=== PATIENT | male | born 1995 | race Caucasian/White ===

== ENCOUNTER 2016-12-15 19:22 | Inpatient (IN) | payer MEDICAID ==
--- NOTE | 2016-12-15 19:46 | EDPHY ---
H & P Smoking Status: Current every day smoker HPI/ROS: Chief complaint. Bizarre behavior HPI. 21-year-old male here by EMS from mental health for unusual behavior. The patient has rambling, nonsensical speech. He tells me he has no pain or injuries. He tells me he has not been sick. When asked him if he has been taking too many medications or is supposed to be on medication and not taking any medication he speaks rambling and nonsensically. He does tell me he has no suicide ideation at this point. ROS--unable to assess secondary to rambling nonsensical speech (Dharmesh Nickerson) Past Medical/Surgical History: Anxiety and depression and apparent previous suicide ideation. This is obtained from old chart (Dharmesh Nickerson) [id number]: This patient has been accepted at [address] [place] [address]. EMTALA Filled out. Appropriate transfer will be set up. (Irwin Griffith) Social History: Single, daily smoker, unknown alcohol (Dharmesh Nickerson) Physical Exam: General Appearance: Alert well-developed male mild distress vital signs are stable. Nonsensical speech Eyes: Pupils equal and round no pallor or injection. ENT, Mouth: Mucous membranes are moist. Respiratory: There are no retractions, lungs are clear to auscultation. Cardiovascular: Regular rate and rhythm. Gastrointestinal: Abdomen is soft and nontender, no masses, bowel sounds normal. Neurological: Awake and alert, sensory and motor exams grossly normal. Skin: Warm and dry, no rashes. Musculoskeletal: Neck is supple nontender. Extremities symmetrical, full range of motion. Psychiatric: Patient is oriented X 1 (name only)., there is no agitation. ( Dharmesh Nickerson) Constitutional: Initial Vital Signs Temperature (C) 37.2 C 12/15/16 19:31 Heart Rate 70 12/15/16 19:31 Respiratory Rate 14 12/15/16 19:31 Blood Pressure 132/93 H 12/15/16 19:31 O2 Sat (%) 98 12/15/16 19:31 O2 Delivery Mode Room Air Allergies/Adverse Reactions: No Known Allergies Allergy (Unverified 12/15/16 19:31) Home Medications: Medication Instructions Recorded NK [No Known Home Meds] 12/15/16 Medical Decision Making ED Course/Re-evaluation: On re-evaluation Patient remained stable. Patient's labs are reviewed by me and found to be normal. Patient is cleared medically for mental health evaluation. (Dharmesh Nickerson) Differential Diagnosis: This appears to be psychiatric issues such as schizophrenia. The patient is clearly disabled and unable to care for self. (Dharmesh Nickerson) Care Turn Over: Care to Dr. Griffith at 10:20 p.m. (Dharmesh Nickerson) - Data Points Laboratory Results: Laboratory Results 12/15/16 19:40 12/15/16 19:40 12/15/16 12/15/16 12/15/16 21:52 19:40 19:40 WBC 6.95 10^3/uL 10^3/uL (3.80-9.50) RBC 5.18 10^6/uL 10^6/uL (4.40-6.38) Hgb 16.0 g/dL g/dL (13.7-17.5) Hct 47.7 % % (40.0-51.0) MCV 92.1 fL fL (81.5-99.8) MCH 30.9 pg pg (27.9-34.1) MCHC 33.5 g/dL g/dL (32.4-36.7) RDW 12.5 % % (11.5-15.2) Plt Count 233 10^3/uL 10^3/uL (150-400) MPV 10.4 fL fL (8.7-11.7) Neut % (Auto) 56.8 % % (39.3-74.2) Lymph % (Auto) 27.8 % % (15.0-45.0) Floyd % (Auto) 11.9 % % (4.5-13.0) Eos % (Auto) 1.9 % % (0.6-7.6) Baso % (Auto) 1.3 % % (0.3-1.7) Nucleat RBC Rel Count 0.0 % % (0.0-0.2) Absolute Neuts (auto) 3.95 10^3/uL 10^3/uL (1.70-6.50) Absolute Lymphs (auto) 1.93 10^3/uL 10^3/uL (1.00-3.00) Absolute Monos (auto) 0.83 10^3/uL H 10^3/uL (0.30-0.80) Absolute Eos (auto) 0.13 10^3/uL 10^3/uL (0.03-0.40) Absolute Basos (auto) 0.09 10^3/uL 10^3/uL (0.02-0.10) Absolute Nucleated RBC 0.00 10^3/uL 10^3/uL (0-0.01) Immature Gran % 0.3 % % (0.0-1.1) Immature Gran # 0.02 10^3/uL 10^3/uL (0.00-0.10) Sodium 142 mEq/L mEq/L (134-144) Potassium 3.5 mEq/L mEq/L (3.5-5.2) Chloride 102 mEq/L mEq/L (97-110) Carbon Dioxide 25 mEq/l mEq/l (22-31) Anion Gap 15 mEq/L mEq/L (8-16) BUN 16 mg/dL mg/dL (7-23) Creatinine 1.0 mg/dL mg/dL (0.7-1.3) Estimated GFR > 60 Glucose 113 mg/dL H mg/dL (70-100) Calcium 10.0 mg/dL mg/dL (8.5-10.4) Urine Opiates Screen NEGATIVE (NEGATIVE) Acetaminophen < 10 mcg/mL L mcg/mL (10.0-30.0) Urine Barbiturates NEGATIVE (NEGATIVE) Ur Phencyclidine Scrn NEGATIVE (NEGATIVE) Ur Amphetamine Screen NEGATIVE (NEGATIVE) U Benzodiazepines Scrn NEGATIVE (NEGATIVE) Urine Cocaine Screen NEGATIVE (NEGATIVE) U Marijuana (THC) Screen NEGATIVE (NEGATIVE) Ethyl Alcohol < 10 mg/dL mg/dL (0-10) Departure - Departure Disposition: [facility] IP Clinical Impression: Gravely disabled Psychosis Qualifiers: Psychosis type: other Qualified Code(s): F28 - Other psychotic disorder not due to a substance or known physiological condition Condition: Fair Referrals: Patient,NotPresent [Unknown] - As per Instructions
[2016-12-15 19:54] LABS: % IMMATURE GRANULYOCYTES 0.3 % (0.0-1.1); ABSOLUTE IMMATURE GRANULOCYTES 0.02 10^3/uL (0.00-0.10); ADD DIFF? NO; ADD MORPH? NO; ADD SCAN? NO; ATYPICAL LYMPHOCYTE FLAG 20 (0-99); FRAGMENT RBC FLAG 0 (0-99); HEMATOCRIT 47.7 % (40.0-51.0); LEFT SHIFT FLG 0 (0-99); LIPEMIA HEMOLYSIS FLAG 80 (0-99); MEAN CELL HEMOGLOBIN 30.9 pg (27.9-34.1); MEAN CELL HEMOGLOBIN CONCENTR. 33.5 g/dL (32.4-36.7); MEAN CELL VOLUME 92.1 fL (81.5-99.8); MEAN PLATELET VOLUME 10.4 fL (8.7-11.7); PLATELET CLUMPS FLAG 0 (0-99); PLATELET COUNT 233 10^3/uL (150-400); RED BLOOD CELL COUNT 5.18 10^6/uL (4.40-6.38); RED CELL DISTRIBUTION WIDTH 12.5 % (11.5-15.2)
[2016-12-15 20:05] LABS: ANION GAP 15 mEq/L (8-16); CARBON DIOXIDE 25 mEq/l (22-31); CHLORIDE 102 mEq/L (97-110); ETHANOL SERUM < 10 mg/dL (0-10); GLOMERULAR FILTRATION RATE > 60; GLUCOSE 113 mg/dL (70-100); POTASSIUM 3.5 mEq/L (3.5-5.2); SODIUM 142 mEq/L (134-144)
[2016-12-16] MEDS ORDERED: LORazepam 0.5 MG TAB PO PRN (12:52)
[2016-12-16] MEDS ORDERED: ACETAMINOPHEN 325 MG TAB PO PRN (12:52)
[2016-12-16] MEDS ORDERED: OLANZapine DISINTEGR 10 MG TAB PO PRN (12:52)
[2016-12-16] MEDS ORDERED: MAGNESIUM HYDROXIDE 30 ML UDCUP PO PRN (12:52)
[2016-12-16] MEDS ORDERED: ZOLPIDEM TARTRATE 5 MG TAB PO PRN (12:55)
[2016-12-16] MEDS: OLANZapine DISINTEGR 5 MG TAB PO SCH ×2 (13:58→20:21)
[2016-12-17] MEDS: OLANZapine DISINTEGR 5 MG TAB PO SCH (07:35)
--- NOTE | 2016-12-17 08:06 | GCON ---
[f rep st] CONSULTATION INTERNAL MEDICINE CONSULT DATE OF CONSULTATION: 12/17/2016 REFERRING PHYSICIAN: Dr. York REASON FOR REFERRAL: Medical consult for psychiatric admission. HISTORY OF PRESENT ILLNESS: [place] is a 21-year-old, brought to the emergency department by EMS for unusual behavior. He was found rambling and nonsensical. He is reluctant to give information on m y interview. He just says, "I'm an empty vessel that wants to lose consciousness." He denies any r ecent illnesses, fevers, chills, weight changes. He denies any headache, chest pain, shortness of b reath. No abdominal complaints, joint complaints, skin rashes, really any medical issues. REVIEW OF SYSTEMS: A 10-point review of systems was attempted including constitutional, eyes, HEENT , cardiovascular, pulmonary, abdominal, , skin, musculoskeletal, neurologic, psychiatric. He answ ers to some of the questions. Other times, he does not want to give information. PAST MEDICAL AND SURGICAL HISTORY: Includes anxiety and depression and apparent suicidal ideation f rom after reviewing the ER chart. The patient does not give any of this history. FAMILY HISTORY: He says he does not know his parents now. SOCIAL HISTORY: He says he is from [place]. He smokes tobacco whenever he can, and when I asked abo ut marijuana he says "certainly," but he denies alcohol use or any other recreational drug use. LABORATORY DATA: CBC is completely within normal limits. Chemistry shows normal electrolytes with minimally elevated glucose. Nonfasting drug screen is negative. PHYSICAL EXAMINATION: GENERAL: He is afebrile, heart rate 64, blood pressure 142/81, respirations 16. He is 97% on room air. GENERAL: He is a thin, healthy-appearing 21-year-old, in no distress. He is alert. HEENT: Atraumatic. Pupils are reactive. Extraocular movements intact. Mucous memb ranes moist. NECK: Supple with good range of motion. Lymph nodes, no cervical lymphadenopathy. T hyroid is within normal limits. HEART: Regular rate and rhythm. No murmur, gallop, or rub. LUNGS : Clear to auscultation. No wheeze, rhonchi, or rales. ABDOMEN: Flat. No obvious masses. Nonte nder to palpation. MUSCULOSKELETAL: No spinal tenderness. No joint effusions or deformities. SKI N: Intact. No rash. NEUROLOGIC: He moves all 4 extremities equally. PSYCHIATRIC: He has poor e ye contact. Flat affect. ASSESSMENT AND PLAN: 1. 21-year-old is admitted for bizarre behavior and psychosis. Please see psychiatric assessment f or details of treatment. Medically, he is healthy. He does admit to tobacco use. Defer to Psychia tr[facility] if they want to continue tobacco replacement while he is in the hospital. 2. Minimally elevated nonfasting blood sugar. Likely secondary to stress. No treatment necessary or followup. 3. Minimally elevated blood pressure. Again, secondary to psychosis and stress. Would continue to monitor this in the hospital. It will likely resolve once he is treated. Thank you for the consultation. /[id number]/MODL
--- NOTE | 2016-12-17 10:42 | SOAPPROG ---
SOAP Progress Note Assessment/Plan: Assessment: Plan: 12/17/16 09:00 DAY 2 UPDATE/EXAM: Nursing reports pt c/w cares and meds, isolative, residually quite thought-disordered; did sleep 6 + hours/ on direct exam pt is cooperative, conversant; evidences POS, JOSE, bizarre psychotic thought process,with elements of anger and depressive ideation; tolerates the session effectively and responsive to reintegrative support. ASSESSMENT/PLAN: residual psychotic acuity; meds compliant/ will increase Zyprexa to 15 mg qd; reintegrative CP d/w Nursing in Rounds Objective: Vital Signs Temp Pulse Resp BP Pulse Ox 36.8 C 64 16 142/81 H 97 12/16/16 07:47 12/16/16 07:47 12/16/16 07:47 12/16/16 07:47 12/16/16 07:47 ICD10 Worksheet Patient Problems: Problems Problem Status Onset Gravely disabled Acute Psychosis Acute
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
[2016-12-17] MEDS: OLANZapine DISINTEGR 10 MG TAB PO SCH ×2 (20:48→20:52)
[2016-12-18] MEDS: OLANZapine DISINTEGR 5 MG TAB PO SCH ×2 (07:32→08:28)
--- NOTE | 2016-12-18 13:42 | SOAPPROG ---
SOAP Progress Note Assessment/Plan: Assessment: Plan: 12/17/16 09:00 DAY 2 UPDATE/EXAM: Nursing reports pt c/w cares and meds, isolative, residually quite thought-disordered; did sleep 6 + hours/ on direct exam pt is cooperative, conversant; evidences POS, JOSE, bizarre psychotic thought process,with elements of anger and depressive ideation; tolerates the session effectively and responsive to reintegrative support. ASSESSMENT/PLAN: residual psychotic acuity; meds compliant/ will increase Zyprexa to 15 mg qd; reintegrative CP d/w Nursing in Rounds 12/18/16 13:37 DAY ' UPDATE/EXAM: Nursing observes pt to evidence significant residual psychosis and affective lability; did initially refuse AM meds but did accept on second pass/ on direct exam pt with POS, expressed anger, JOSE, persecutory delusions; underlying dysphoria; did stay thru entire session and appeared to partially respond + to reintegrative inputs ASSESSMENT/PLAN: slightly improved b/w significant residual instability as referenced/ no change in meds or management as d/w Nursing in Rounds Objective: Vital Signs Temp Pulse Resp BP Pulse Ox 36.6 C 69 16 111/70 97 12/18/16 06:24 12/18/16 06:24 12/18/16 06:24 12/18/16 06:24 12/18/16 06:24 ICD10 Worksheet Patient Problems: Problems Problem Status Onset Gravely disabled Acute Psychosis Acute
[2016-12-18] MEDS: OLANZapine DISINTEGR 10 MG TAB PO SCH (21:07)
[2016-12-19] MEDS: OLANZapine DISINTEGR 5 MG TAB PO SCH (08:20)
--- NOTE | 2016-12-19 09:20 | SOAPPROG ---
SOAP Progress Note Assessment/Plan: Assessment: Plan: 12/17/16 09:00 DAY 2 UPDATE/EXAM: Nursing reports pt c/w cares and meds, isolative, residually quite thought-disordered; did sleep 6 + hours/ on direct exam pt is cooperative, conversant; evidences POS, JOSE, bizarre psychotic thought process,with elements of anger and depressive ideation; tolerates the session effectively and responsive to reintegrative support. ASSESSMENT/PLAN: residual psychotic acuity; meds compliant/ will increase Zyprexa to 15 mg qd; reintegrative CP d/w Nursing in Rounds 12/18/16 13:37 DAY ' UPDATE/EXAM: Nursing observes pt to evidence significant residual psychosis and affective lability; did initially refuse AM meds but did accept on second pass/ on direct exam pt with POS, expressed anger, JOSE, persecutory delusions; underlying dysphoria; did stay thru entire session and appeared to partially respond + to reintegrative inputs ASSESSMENT/PLAN: slightly improved b/w significant residual instability as referenced/ no change in meds or management as d/w Nursing in Rounds 12/19/16 09:00 DAY UPDATE/EXAM: Nursing reports did not take hs Zyprexa but did comply with AM dose / on direct exam refuses to talk and his RN said muteness began earlier in shift ; will recontact pt later in the day to try to evoke verbal engagement/ will file for COM today, CP d/w Nursing in Rounds, contact to [facility] [place] pending to update and enlist her help with pt to comply with rx plan; will increase AM Zyprexa to 10 mg Objective: Vital Signs Temp Pulse Resp BP Pulse Ox 36.3 C 80 14 121/74 H 98 12/19/16 06:00 12/19/16 06:00 12/19/16 06:00 12/19/16 06:00 12/19/16 06:00 ICD10 Worksheet Patient Problems: Problems Problem Status Onset Gravely disabled Acute Psychosis Acute
[2016-12-19] MEDS: NICOTINE POLACRILEX 2 MG GUM B PRN (18:32)
[2016-12-19] MEDS: OLANZapine DISINTEGR 10 MG TAB PO SCH (20:25)
--- NOTE | 2016-12-20 08:24 | SOAPPROG ---
SOAP Progress Note Assessment/Plan: Assessment: Plan: 12/17/16 09:00 DAY 2 UPDATE/EXAM: Nursing reports pt c/w cares and meds, isolative, residually quite thought-disordered; did sleep 6 + hours/ on direct exam pt is cooperative, conversant; evidences POS, JOSE, bizarre psychotic thought process,with elements of anger and depressive ideation; tolerates the session effectively and responsive to reintegrative support. ASSESSMENT/PLAN: residual psychotic acuity; meds compliant/ will increase Zyprexa to 15 mg qd; reintegrative CP d/w Nursing in Rounds 12/18/16 13:37 DAY UPDATE/EXAM: Nursing observes pt to evidence significant residual psychosis and affective lability; did initially refuse AM meds but did accept on second pass/ on direct exam pt with POS, expressed anger, JOSE, persecutory delusions; underlying dysphoria; did stay thru entire session and appeared to partially respond + to reintegrative inputs ASSESSMENT/PLAN: slightly improved b/w significant residual instability as referenced/ no change in meds or management as d/w Nursing in Rounds 12/19/16 09:00 DAY UPDATE/EXAM: Nursing reports did not take hs Zyprexa but did comply with AM dose / on direct exam refuses to talk and his RN said muteness began earlier in shift ; will recontact pt later in the day to try to evoke verbal engagement/ will file for COM today, CP d/w Nursing in Rounds, contact to [facility] [place] pending to update and enlist her help with pt to comply with rx plan; will increase AM Zyprexa to 10 mg ASSESSMENT/PLAN: Residual psychotic acuity as referenced; currently refusing to talk and continues to resist medication/ CP reviewed with Nursing in Rounds with emphasis on trust-building and to reinforce meds compliance; COM request filed; Zyprexa updosed to 10 mg bid 12/20/16 DAY UPDATE/EXAM: Objective: Vital Signs Temp Pulse Resp BP Pulse Ox 36.2 C 83 16 117/70 98 12/20/16 06:13 12/20/16 06:13 12/20/16 06:13 12/20/16 06:13 12/20/16 06:13 ICD10 Worksheet Patient Problems: Problems Problem Status Onset Gravely disabled Acute Psychosis Acute
[2016-12-20] MEDS: OLANZapine DISINTEGR 10 MG TAB PO SCH ×4 (08:57→20:45)
[2016-12-20] MEDS: NICOTINE POLACRILEX 2 MG GUM B PRN (14:17)
--- NOTE | 2016-12-20 15:57 | SOAPPROG ---
SOAP Progress Note Assessment/Plan: Assessment: Plan: 12/17/16 09:00 DAY 2 UPDATE/EXAM: Nursing reports pt c/w cares and meds, isolative, residually quite thought-disordered; did sleep 6 + hours/ on direct exam pt is cooperative, conversant; evidences POS, JOSE, bizarre psychotic thought process,with elements of anger and depressive ideation; tolerates the session effectively and responsive to reintegrative support. ASSESSMENT/PLAN: residual psychotic acuity; meds compliant/ will increase Zyprexa to 15 mg qd; reintegrative CP d/w Nursing in Rounds 12/18/16 13:37 DAY ' UPDATE/EXAM: Nursing observes pt to evidence significant residual psychosis and affective lability; did initially refuse AM meds but did accept on second pass/ on direct exam pt with POS, expressed anger, JOSE, persecutory delusions; underlying dysphoria; did stay thru entire session and appeared to partially respond + to reintegrative inputs ASSESSMENT/PLAN: slightly improved b/w significant residual instability as referenced/ no change in meds or management as d/w Nursing in Rounds 12/19/16 09:00 DAY UPDATE/EXAM: Nursing reports did not take hs Zyprexa but did comply with AM dose / on direct exam refuses to talk and his RN said muteness began earlier in shift ; will recontact pt later in the day to try to evoke verbal engagement/ will file for COM today, CP d/w Nursing in Rounds, [place] [facility] [place] and enlist her help with pt to comply with rx plan; will increase AM Zyprexa to 10 mg ASSESSMENT/PLAN: Residual psychotic acuity as referenced; currently refusing to talk and continues to resist medication/ CP reviewed with Nursing in Rounds with emphasis on trust-building and to reinforce meds compliance; COM request filed; Zyprexa updosed to 10 mg bid 12/20/16 12:30 DAY UPDATE/EXAM; Nursing reports compliance with meds improving past 24 hours/ on exam pt is calmer, better organized with residual psychosis; responsive to reintegrative support. ASSESSMENT/PLAN: early phase improvement detectable/ no change in mesd or management; will review [place] [facility] [place] and consider speaker family meeting; also consider adding AD. Objective: Vital Signs Temp Pulse Resp BP Pulse Ox 36.2 C 83 16 117/70 98 12/20/16 06:13 12/20/16 06:13 12/20/16 06:13 12/20/16 06:13 12/20/16 06:13 ICD10 Worksheet Patient Problems: Problems Problem Status Onset Gravely disabled Acute Psychosis Acute
[2016-12-21] MEDS: OLANZapine DISINTEGR 10 MG TAB PO SCH (08:58)
--- NOTE | 2016-12-21 13:50 | SOAPPROG ---
SOAP Progress Note Assessment/Plan: Assessment: Plan: 12/17/16 09:00 DAY 2 UPDATE/EXAM: Nursing reports pt c/w cares and meds, isolative, residually quite thought-disordered; did sleep 6 + hours/ on direct exam pt is cooperative, conversant; evidences POS, JOSE, bizarre psychotic thought process,with elements of anger and depressive ideation; tolerates the session effectively and responsive to reintegrative support. ASSESSMENT/PLAN: residual psychotic acuity; meds compliant/ will increase Zyprexa to 15 mg qd; reintegrative CP d/w Nursing in Rounds 12/18/16 13:37 DAY ' UPDATE/EXAM: Nursing observes pt to evidence significant residual psychosis and affective lability; did initially refuse AM meds but did accept on second pass/ on direct exam pt with POS, expressed anger, JOSE, persecutory delusions; underlying dysphoria; did stay thru entire session and appeared to partially respond + to reintegrative inputs ASSESSMENT/PLAN: slightly improved b/w significant residual instability as referenced/ no change in meds or management as d/w Nursing in Rounds 12/19/16 09:00 DAY UPDATE/EXAM: Nursing reports did not take hs Zyprexa but did comply with AM dose / on direct exam refuses to talk and his RN said muteness began earlier in shift ; will recontact pt later in the day to try to evoke verbal engagement/ will file for COM today, CP d/w Nursing in Rounds, contact to [facility] [place] pending to update and enlist her help with pt to comply with rx plan; will increase AM Zyprexa to 10 mg ASSESSMENT/PLAN: Residual psychotic acuity as referenced; currently refusing to talk and continues to resist medication/ CP reviewed with Nursing in Rounds with emphasis on trust-building and to reinforce meds compliance; COM request filed; Zyprexa updosed to 10 mg bid 12/20/16 12:30 DAY UPDATE/EXAM; Nursing reports compliance with meds improving past 24 hours/ on exam pt is calmer, better organized with residual psychosis; responsive to reintegrative support. ASSESSMENT/PLAN: early phase improvement detectable/ no change in meds or management; will review course with [facility] [place] tomorrow and consider speaker family meeting; also consider adding AD. 12/21/16 13:40 DAY ' UPDATE/EXAM: Nursing reports pt again taking AM dosings but not hs dose of Zyprexa; appears calmer and more present in milieu but isolative; attendssome some groups selectively/ on direct exam facies is more affective-expessive; discussed again the value of taking both doses of Zyprexa and the generall value of building trust in myself and the staff as we are present to help him heal; remained engaged and attentive thru the session but thoughts remain psychotically illogical and mood with residual dysphoria. ASSESSMENT/PLAN: evidencing slight signs of recompensation b/w residual psychotic acuity/ no change in current meds; CP focus continues on alliance- building and meds compliance; waiting for Court hearing on COM request. Objective: Vital Signs Temp Pulse Resp BP Pulse Ox 36.4 C 74 16 117/74 99 12/21/16 06:30 12/21/16 06:30 12/21/16 06:30 12/21/16 06:30 12/21/16 06:30 ICD10 Worksheet Patient Problems: Problems Problem Status Onset Gravely disabled Acute Psychosis Acute
--- NOTE | 2016-12-21 14:55 | SOAPPROG ---
SOAP Progress Note Assessment/Plan: Assessment: Plan: 12/17/16 09:00 DAY 2 UPDATE/EXAM: Nursing reports pt c/w cares and meds, isolative, residually quite thought-disordered; did sleep 6 + hours/ on direct exam pt is cooperative, conversant; evidences POS, JOSE, bizarre psychotic thought process,with elements of anger and depressive ideation; tolerates the session effectively and responsive to reintegrative support. ASSESSMENT/PLAN: residual psychotic acuity; meds compliant/ will increase Zyprexa to 15 mg qd; reintegrative CP d/w Nursing in Rounds 12/18/16 13:37 DAY ' UPDATE/EXAM: Nursing observes pt to evidence significant residual psychosis and affective lability; did initially refuse AM meds but did accept on second pass/ on direct exam pt with POS, expressed anger, JOSE, persecutory delusions; underlying dysphoria; did stay thru entire session and appeared to partially respond + to reintegrative inputs ASSESSMENT/PLAN: slightly improved b/w significant residual instability as referenced/ no change in meds or management as d/w Nursing in Rounds 12/19/16 09:00 DAY UPDATE/EXAM: Nursing reports did not take hs Zyprexa but did comply with AM dose / on direct exam refuses to talk and his RN said muteness began earlier in shift ; will recontact pt later in the day to try to evoke verbal engagement/ will file for COM today, CP d/w Nursing in Rounds, contact to [facility] [place] pending to update and enlist her help with pt to comply with rx plan; will increase AM Zyprexa to 10 mg ASSESSMENT/PLAN: Residual psychotic acuity as referenced; currently refusing to talk and continues to resist medication/ CP reviewed with Nursing in Rounds with emphasis on trust-building and to reinforce meds compliance; COM request filed; Zyprexa updosed to 10 mg bid 12/20/16 12:30 DAY UPDATE/EXAM; Nursing reports compliance with meds improving past 24 hours/ on exam pt is calmer, better organized with residual psychosis; responsive to reintegrative support. ASSESSMENT/PLAN: early phase improvement detectable/ no change in meds or management; will review course with [facility] [place] tomorrow and consider speaker family meeting; also consider adding AD. 12/21/16 13:40 DAY ' UPDATE/EXAM: Nursing reports pt again taking AM dosings but not hs dose of Zyprexa; appears calmer and more present in milieu but isolative; attends some some groups selectively/ on direct exam facies is more affective-expressive; discussed again the value of taking both doses of Zyprexa and the general value of building trust in myself and the staff as we are present to help him heal; remained engaged and attentive thru the session but thoughts remain psychotically illogical and mood with residual dysphoria. ASSESSMENT/PLAN: evidencing slight signs of recompensation b/w residual psychotic acuity/ no change in current meds; CP focus continues on alliance- building and meds compliance; waiting for Court hearing on COM reques Objective: Vital Signs Temp Pulse Resp BP Pulse Ox 36.4 C 74 16 117/74 99 12/21/16 06:30 12/21/16 06:30 12/21/16 06:30 12/21/16 06:30 12/21/16 06:30 ICD10 Worksheet Patient Problems: Problems Problem Status Onset Gravely disabled Acute Psychosis Acute
[2016-12-22] MEDS: OLANZapine DISINTEGR 5 MG TAB PO SCH (07:57)
[2016-12-22] MEDS ORDERED: OLANZapine DISINTEGR 10 MG TAB PO SCH (09:00)
--- NOTE | 2016-12-22 12:34 | SOAPPROG ---
SOAP Progress Note Assessment/Plan: Assessment: Plan: 12/17/16 09:00 DAY 2 UPDATE/EXAM: Nursing reports pt c/w cares and meds, isolative, residually quite thought-disordered; did sleep 6 + hours/ on direct exam pt is cooperative, conversant; evidences POS, JOSE, bizarre psychotic thought process,with elements of anger and depressive ideation; tolerates the session effectively and responsive to reintegrative support. ASSESSMENT/PLAN: residual psychotic acuity; meds compliant/ will increase Zyprexa to 15 mg qd; reintegrative CP d/w Nursing in Rounds 12/18/16 13:37 DAY ' UPDATE/EXAM: Nursing observes pt to evidence significant residual psychosis and affective lability; did initially refuse AM meds but did accept on second pass/ on direct exam pt with POS, expressed anger, JOSE, persecutory delusions; underlying dysphoria; did stay thru entire session and appeared to partially respond + to reintegrative inputs ASSESSMENT/PLAN: slightly improved b/w significant residual instability as referenced/ no change in meds or management as d/w Nursing in Rounds 12/19/16 09:00 DAY UPDATE/EXAM: Nursing reports did not take hs Zyprexa but did comply with AM dose / on direct exam refuses to talk and his RN said muteness began earlier in shift ; will recontact pt later in the day to try to evoke verbal engagement/ will file for COM today, CP d/w Nursing in Rounds, contact to [facility] [place] pending to update and enlist her help with pt to comply with rx plan; will increase AM Zyprexa to 10 mg ASSESSMENT/PLAN: Residual psychotic acuity as referenced; currently refusing to talk and continues to resist medication/ CP reviewed with Nursing in Rounds with emphasis on trust-building and to reinforce meds compliance; COM request filed; Zyprexa updosed to 10 mg bid 12/20/16 12:30 DAY UPDATE/EXAM; Nursing reports compliance with meds improving past 24 hours/ on exam pt is calmer, better organized with residual psychosis; responsive to reintegrative support. ASSESSMENT/PLAN: early phase improvement detectable/ no change in meds or management; will review course with [facility] [place] tomorrow and consider speaker family meeting; also consider adding AD. 12/21/16 13:40 DAY UPDATE/EXAM: Nursing reports pt again taking AM dosings but not hs dose of Zyprexa; appears calmer and more present in milieu but isolative; attends some some groups selectively/ on direct exam facies is more affective-expressive; discussed again the value of taking both doses of Zyprexa and the general value of building trust in myself and the staff as we are present to help him heal; remained engaged and attentive thru the session but thoughts remain psychotically illogical and mood with residual dysphoria. ASSESSMENT/PLAN: evidencing slight signs of recompensation b/w residual psychotic acuity/ no change in current meds; CP focus continues on alliance- building and meds compliance; waiting for Court hearing on COM reques 12/22/16 1200 DAY UPDATE/EXAM: Nursing reports pt continues with meds compliance with AM Zyprexa and is building on the descriptive progress in recompensating/ on direct exam he evidences improving range and modulation of affective expression; not overtly psychotic but with residual guardedness; again describes social anxiety and is agreeable to trial of Zoloft as anxiolytic and antidepressant medication ; understands that I am transferring his care to Dr Montenegro as I am leaving service today. ASSESSMENT/PLAN: continued descriptive improvement as referenced/ will add trial of Zoloft at 50 mg qam; no other meds changes; CP d/w Nursing in Rounds Objective: Vital Signs Temp Pulse Resp BP Pulse Ox 36.7 C 84 15 125/80 H 98 12/22/16 06:00 12/22/16 06:00 12/22/16 06:00 12/22/16 06:00 12/22/16 06:00 ICD10 Worksheet Patient Problems: Problems Problem Status Onset Gravely disabled Acute Psychosis Acute
[2016-12-22] MEDS: SERTRALINE HCL 50 MG TAB PO SCH (13:36)
[2016-12-23] MEDS: OLANZapine DISINTEGR 5 MG TAB PO SCH (06:28)
[2016-12-23] MEDS: SERTRALINE HCL 50 MG TAB PO SCH (06:28)
--- NOTE | 2016-12-23 08:02 | SOAPPROG ---
SOAP Progress Note Assessment/Plan: Assessment: Plan: 12/17/16 09:00 DAY 2 UPDATE/EXAM: Nursing reports pt c/w cares and meds, isolative, residually quite thought-disordered; did sleep 6 + hours/ on direct exam pt is cooperative, conversant; evidences POS, JOSE, bizarre psychotic thought process,with elements of anger and depressive ideation; tolerates the session effectively and responsive to reintegrative support. ASSESSMENT/PLAN: residual psychotic acuity; meds compliant/ will increase Zyprexa to 15 mg qd; reintegrative CP d/w Nursing in Rounds 12/18/16 13:37 DAY ' UPDATE/EXAM: Nursing observes pt to evidence significant residual psychosis and affective lability; did initially refuse AM meds but did accept on second pass/ on direct exam pt with POS, expressed anger, JOSE, persecutory delusions; underlying dysphoria; did stay thru entire session and appeared to partially respond + to reintegrative inputs ASSESSMENT/PLAN: slightly improved b/w significant residual instability as referenced/ no change in meds or management as d/w Nursing in Rounds 12/19/16 09:00 DAY UPDATE/EXAM: Nursing reports did not take hs Zyprexa but did comply with AM dose / on direct exam refuses to talk and his RN said muteness began earlier in shift ; will recontact pt later in the day to try to evoke verbal engagement/ will file for COM today, CP d/w Nursing in Rounds, contact to [facility] [place] pending to update and enlist her help with pt to comply with rx plan; will increase AM Zyprexa to 10 mg ASSESSMENT/PLAN: Residual psychotic acuity as referenced; currently refusing to talk and continues to resist medication/ CP reviewed with Nursing in Rounds with emphasis on trust-building and to reinforce meds compliance; COM request filed; Zyprexa updosed to 10 mg bid 12/20/16 12:30 DAY UPDATE/EXAM; Nursing reports compliance with meds improving past 24 hours/ on exam pt is calmer, better organized with residual psychosis; responsive to reintegrative support. ASSESSMENT/PLAN: early phase improvement detectable/ no change in meds or management; will review course with [facility] [place] tomorrow and consider speaker family meeting; also consider adding AD. 12/21/16 13:40 DAY UPDATE/EXAM: Nursing reports pt again taking AM dosings but not hs dose of Zyprexa; appears calmer and more present in milieu but isolative; attends some some groups selectively/ on direct exam facies is more affective-expressive; discussed again the value of taking both doses of Zyprexa and the general value of building trust in myself and the staff as we are present to help him heal; remained engaged and attentive thru the session but thoughts remain psychotically illogical and mood with residual dysphoria. ASSESSMENT/PLAN: evidencing slight signs of recompensation b/w residual psychotic acuity/ no change in current meds; CP focus continues on alliance- building and meds compliance; waiting for Court hearing on COM reques 12/22/16 1200 DAY UPDATE/EXAM: Nursing reports pt continues with meds compliance with AM Zyprexa and is building on the descriptive progress in recompensating/ on direct exam he evidences improving range and modulation of affective expression; not overtly psychotic but with residual guardedness; again describes social anxiety and is agreeable to trial of Zoloft as anxiolytic and antidepressant medication ; understands that I am transferring his care to Dr Montenegro as I am leaving service today. ASSESSMENT/PLAN: continued descriptive improvement as referenced; pt has stipulated, cancelling need for Court hearing/ will add trial of Zoloft at 50 mg qam; no other meds changes; CP d/w Nursing in Rounds 12/22/16 15:00 EXAM: On second contact during speaker phone meeting wiht patient and mother he evidenced frannk paranoid ideation, asking mother to facilitate his DC and presenting a sense of hospitalization as imprisoning him; did tolerate staying thru the session and interacted positive verbal manner with mother who was empathic but endorsing of his treatment efforts and remaining in hospital. Objective: Vital Signs Temp Pulse Resp BP Pulse Ox 36.7 C 102 H 12 119/63 97 12/23/16 06:00 12/23/16 06:00 12/23/16 06:00 12/23/16 06:00 12/23/16 06:00 ICD10 Worksheet Patient Problems: Problems Problem Status Onset Gravely disabled Acute Psychosis Acute
[2016-12-23] MEDS ORDERED: OLANZapine DISINTEGR 10 MG TAB PO PRN (13:44)
--- NOTE | 2016-12-23 13:47 | SOAPPROG ---
SOAP Progress Note Assessment/Plan: Assessment: Plan: 12/23/16 13:44 Continue patient on Zyprexa zydis for exacerbation of acute onset psychosis starting approximately 3 months ago, most likely d/t chronic, severe use of THC. Patient was also started on Zoloft during this admission for depression and anxiety, both of which are likely made worse by patient's prolonged drug use including potent depressogenic drugs, such as alcohol and THC. Patient has been advised of drug interactions between his prescription meds and his recreational drugs. He has also been advised of difficulty treating his mood and thought problems, especially his psychotic sxs, as long as he continues to use THC and other mood altering substances. Subjective: Patient presents calmer, more organized, lucid and coherent than indicated in prior MD notes. Patient himself acknowledges that he feels that his thoughts are "more organized" and he feels "calmer" and "less anxious." Patient says he was admitted because of "my inability to be an adult" and to "work on my social anxiety." He says his mother takes Zoloft and feels that it "helps her." Patient is hoping that Zoloft will help with his depression and anxiety. He denies any AH/VH, and denies paranoid thoughts. He does not appear to be responding to internal/external stimuli. He is able to focus on conversation with MD, is not agitated or distracted. He says his plan is to live with his [facility] after discharge and has agreed to see psych MD, take meds and stop using THC. Objective: Vital Signs Temp Pulse Resp BP Pulse Ox 36.7 C 102 H 12 119/63 97 12/23/16 06:00 12/23/16 06:00 12/23/16 06:00 12/23/16 06:00 12/23/16 06:00 MSE: calm, cooperative, more organized and better able to focus. Affect: blunt Mood: "OK" TP: more linear TC: denies any AH/VH, SI/HI, no signs of paranoia or int/ext stim - Time Spent With Patient Time Spent With Patient: 25' - Pending Discharge Pending Discharge Within 24 Hours: No Pending Discharge Within 48 Hours: No ICD10 Worksheet Patient Problems: Problems Problem Status Onset Cannabis use disorder, severe, in controlled environment, dependence Acute Gravely disabled Acute Psychosis Acute - ICD10 Problem Qualifiers (1) Cannabis use disorder, severe, in controlled environment, dependence (2) Psychosis Qualifiers: Psychosis type: brief psychotic disorder Schizoaffective disorder type: S Schizophrenia type: S Qualified Code(s): F23 - Brief psychotic disorder
[2016-12-24] MEDS: OLANZapine DISINTEGR 5 MG TAB PO SCH (07:25)
[2016-12-24] MEDS: SERTRALINE HCL 50 MG TAB PO SCH (07:25)
--- NOTE | 2016-12-24 12:45 | SOAPPROG ---
SOAP Progress Note Assessment/Plan: Assessment: Plan: 12/23/16 13:44 Continue patient on Zyprexa zydis for exacerbation of acute onset psychosis starting approximately 3 months ago, most likely d/t chronic, severe use of THC. Patient was also started on Zoloft during this admission for depression and anxiety, both of which are likely made worse by patient's prolonged drug use including potent depressogenic drugs, such as alcohol and THC. Patient has been advised of drug interactions between his prescription meds and his recreational drugs. He has also been advised of difficulty treating his mood and thought problems, especially his psychotic sxs, as long as he continues to use THC and other mood altering substances. 12/24/16 12:42 Plan: 1. Continue Zyprexa and Zoloft 2. Patient has referral to [facility] on 12/27/16 3. Recommend substance use disorder tx through [facility] CD-IOP or similar 4. Likely to d/c directly to [facility] appt or on 12/26/16 if family is willing to provide support/supervision Subjective: Patient presents calmer, less restless, less distractible. He reports not getting "a good night's sleep" and feels "tired." He denies feeling sad or depressed, but feels like he's been in hospital "too long." Discussed plans for aftercare, patient says he is willing to go "anywhere" to see providers, but has unreliable transportation as he has to depend on his mom or "take the bus." Would like him to have convenient access to providers to ensure better chance of compliance after discharge. Objective: Vital Signs Temp Pulse Resp BP Pulse Ox 36.5 C 108 H 14 130/78 H 95 12/24/16 06:00 12/24/16 06:00 12/24/16 06:00 12/24/16 06:00 12/24/16 06:00 MSE: Cooperative, subdued, pacing halls. Affect: Flat Mood: "Neither here nor there, not dwelling on the negative." TP: Goal-directed TC: Denies AH/VH, no paranoia, denies SI/HI Insight/Judgment: Limited - Time Spent With Patient Time Spent With Patient: 25' - Pending Discharge Pending Discharge Within 24 Hours: No ICD10 Worksheet Patient Problems: Problems Problem Status Onset Cannabis use disorder, severe, in controlled environment, dependence Acute Gravely disabled Acute Psychosis Acute - ICD10 Problem Qualifiers (1) Cannabis use disorder, severe, in controlled environment, dependence (2) Psychosis Qualifiers: Psychosis type: brief psychotic disorder Schizoaffective disorder type: S Schizophrenia type: S Qualified Code(s): F23 - Brief psychotic disorder
[2016-12-24] MEDS: NICOTINE POLACRILEX 2 MG GUM B PRN (16:09)
[2016-12-25 06:17] VITALS: TEMP 97.9
[2016-12-25] MEDS: SERTRALINE HCL 50 MG TAB PO SCH (07:57)
[2016-12-25] MEDS: OLANZapine DISINTEGR 5 MG TAB PO SCH (07:58)
--- NOTE | 2016-12-25 13:30 | SOAPPROG ---
SOAP Progress Note Assessment/Plan: Assessment: Plan: 12/23/16 13:44 Continue patient on Zyprexa zydis for exacerbation of acute onset psychosis starting approximately 3 months ago, most likely d/t chronic, severe use of THC. Patient was also started on Zoloft during this admission for depression and anxiety, both of which are likely made worse by patient's prolonged drug use including potent depressogenic drugs, such as alcohol and THC. Patient has been advised of drug interactions between his prescription meds and his recreational drugs. He has also been advised of difficulty treating his mood and thought problems, especially his psychotic sxs, as long as he continues to use THC and other mood altering substances. 12/24/16 12:42 Plan: 1. Continue Zyprexa and Zoloft 2. Patient has referral to [facility] on 12/27/16 3. Recommend substance use disorder tx through [facility] CD-IOP or similar 4. Likely to d/c directly to [facility] appt or on 12/26/16 if family is willing to provide support/supervision 12/25/16 13:22 Plan: 1. CCM 2. Patient likely to d/c on 12/27/16 to [facility] appointment 3. Request CC talk to patient's MOC to determine what support/supervision family will be able to provide. Subjective: Met with patient and discussed with staff. Patient presents more irritable and labile this AM. He continues to c/o about groups on unit. He says, "every day here is the same, I don't like going to groups that are repeating the same things." He says that being in the hospital is "diminishing my spirit" and he wants to leave and start doing "real therapy" so "I can get suggestions for bettering my life." MD attempted to explain that the main benefit of his hospitalization is to make sure his medications are effective and that it might take some time for them to have their full effect. Patient says "that should only take a week," but MD explained that in many cases it takes longer. Patient is dismissive of MD's explanations and says he is not "quick to anger" but says MD has a "bad aura." He denies any AH/VH and there is no evidence of int/ext stim. He also denies any SI/HI. Patient's impaired reality testing and slight paranoia (feels people are slighting him) seems persistent, but the most severe sxs of his psychosis are resolving with treatment. Objective: Vital Signs Temp Pulse Resp BP Pulse Ox 36.6 C 79 12 122/60 H 97 12/25/16 06:00 12/25/16 06:00 12/25/16 06:00 12/25/16 06:00 12/25/16 06:00 MSE: Irritable, labile, minimally cooperative. Affect: Angry Mood: "I'm not angry" TP: Disorganized, tangential TC: No AH/VH, Denies SI/HI, paranoia present Insight/Judgment: Poor/Impaired - Time Spent With Patient Time Spent With Patient: 25" - Pending Discharge Pending Discharge Within 24 Hours: No Pending Discharge Within 48 Hours: Yes Pending Discharge Date: 12/27/16 Pending Discharge Time: 12:00 ICD10 Worksheet Patient Problems: Problems Problem Status Onset Cannabis use disorder, severe, in controlled environment, dependence Acute Gravely disabled Acute Psychosis Acute - ICD10 Problem Qualifiers (1) Cannabis use disorder, severe, in controlled environment, dependence (2) Psychosis Qualifiers: Psychosis type: brief psychotic disorder Schizoaffective disorder type: S Schizophrenia type: S Qualified Code(s): F23 - Brief psychotic disorder
[2016-12-26 06:39] VITALS: BP 119/79; PULSE 70; RESP 14; O2SAT 95
[2016-12-26] MEDS: SERTRALINE HCL 50 MG TAB PO SCH (07:39)
[2016-12-26] MEDS: OLANZapine DISINTEGR 5 MG TAB PO SCH (07:40)
--- NOTE | 2016-12-27 01:32 | BDS ---
[f rep st] BEHAVIORAL HEALTH DISCHARGE SUMMARY REASON FOR ADMISSION: A 21-year-old man brought to the emergency department by EMS for unusual beha vior. He was found rambling and nonsensical. He said, "I am an empty vessel that wants to lose con sciousness." Patient was making rambling nonsensical speech in the ED. He was admitted to [address] [place] [address] inpatient psychiatric unit for psychosis. Admitting diagnoses were given by Dr. York, his initial attending psychiatrist. They include the followin. 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 2. Major depressive disorder, recurrent, moderate. 3. Cannabis use disorder, severe, chronic. 4. Alcohol use disorder, severe, chronic. 5. Amphetamine use disorder, in remission. At the time of admission, the patient was also experiencing unemployment, financial problems, relati onship problems with girlfriend and limited social support. Admission physical examination was done. There was an internal medicine inpatient consult done on 12/17/2016, by Dr. Arianne Schuster. Physical examination noted the patient was afebrile. Slightly elev ated blood pressure, slightly elevated blood glucose. No other positive symptoms. Her recommendati on was minimally elevated nonfasting blood sugar, likely secondary to stress, no treatment necessary . Minimally elevated blood pressure, again secondary to psychoses and stress, would continue to mon itor and will likely resolve once he is treated for his psychotic symptoms. Admission laboratories were done in the emergency department. At that time, his heart rate was 70, respirations were 14, blood pressure was 132/93, his temp was 37.2 degrees celsius. His white cell count was 6.95, hemoglobin was 16, hematocrit was 47.7, platelets were 233. His sodium was 142, his potassium was 3.5, his chloride was 102. Urine drug screen was negative and blood glucose was 113. His blood alcohol level was less than 10. HOSPITAL COURSE: The patient was initially admitted under the service of Dr. Latia York. Dr. Ehsan flores said that the patient presented with a history of major depressive disorder, onset in childhoo d, that he had struggled with addictions to marijuana beginning at age 11. Patient's mother acknowl edged that the patient had had problems with abusing ozov-lxi-tsvrdod Benadryl and had used cough sy rup, abusing Robitussin, Benadryl, and had used amphetamines in the past. More recently, the mother reports that the patient began experiencing more symptoms of psychosis within the last 3 months. S he observed him intermittently speaking to himself and "others who were not there." Mother reports that the patient has engaged in daily cannabis use during this time as he has for most days since th e age of 11. Mother took him to the walk-in clinic on December 14. During that visit, the patient agr eed to begin outpatient treatment and was given a followup appointment. By the morning of 12/15, th e patient cut himself superficially with a knife on his shoulder and became aggressive with his moth er, stating "the left side of your brain has demons." Mother took him back to the walk-in clinic wh ere patient was placed on M1 hold and sent to the [facility] emergency department, w as subsequently admitted to [address] [place] [address] on a mental health hold. He was started on Zyprexa for his psyc hosis and it was gradually increased to 15 mg p.o. q.h.s. Patient was also started on Zoloft for hi s chronic recurrent depressive symptoms, and because his mother also takes Zoloft and she says that it has helped her. Patient became less confused and less disorganized. Became more linear, coheren t, and goal directed. He became less irritable. His mood lability decreased to the point where he was much more stable over the last several days prior to his discharge. CONDITION ON DISCHARGE: Patient is stable. His affect is flat. His mood is "okay." He is much le ss irritable and more coherent and organized than upon admission. DISCHARGE MEDICATIONS: Include Ativan 0.5 mg p.o. b.i.d. p.r.n. for anxiety, agitation; Zyprexa 15 mg p.o. q.h.s. for psychosis; and Zoloft 50 mg p.o. daily for depression. DISCHARGE DIAGNOSES: 1. Substance-induced psychosis. 2. Cannabis use disorder, chronic severe. 3. Alcohol use disorder, chronic, severe. 4. Amphetamine use disorder, in remission. 5. Major depressive disorder, recurrent, severe. PSYCHOSOCIAL STRESSORS: Include unemployment, interpersonal conflict, recent break up with his girl friend, limited social support, living at home with parents. DISPOSITION: Patient left the hospital with his mother, who he lives with, and is going to continue to supervise and monitor him. FOLLOWUP: Patient has a follow up appointment at [facility] on 12/27/2016, [place]. Mother says that she is going to make sure that the patient gets to his appointment on time. LEGAL COURSE: The patient was admitted on an M1 hold, converted to a short-term certification, whic h was dropped prior to his discharge. /[id number]/MODL
== END 2016-12-26 14:20 | disposition home or self-care (01) | DRG 885 ==
LOC: EDUNIT# → BBEH 12-16 09:10
PROVIDERS: ADMIT Psychiatry & Neurology Psychiatry; ATTEND Psychiatry & Neurology Psychiatry
DX: F33.2 Major depressive disorder, recurrent severe without psychotic features (principal); F10.159 Alcohol abuse with alcohol-induced psychotic disorder, unspecified; F12.959 Cannabis use, unspecified with psychotic disorder, unspecified; Z72.0 Tobacco use
CPT/HCPCS: 80305; G0480

== ENCOUNTER 2017-01-07 14:15 | Emergency (ER) | payer SELFPAY ==
[2017-01-07 14:24] VITALS: TEMP 98.4
[2017-01-07 14:51] LABS: % IMMATURE GRANULYOCYTES 0.4 % (0.0-1.1); ABSOLUTE IMMATURE GRANULOCYTES 0.02 10^3/uL (0.00-0.10); ADD DIFF? NO; ADD MORPH? NO; ADD SCAN? NO; ATYPICAL LYMPHOCYTE FLAG 10 (0-99); FRAGMENT RBC FLAG 0 (0-99); HEMATOCRIT 46.9 % (40.0-51.0); HEMOGLOBIN 15.9 g/dL (13.7-17.5); LEFT SHIFT FLG 0 (0-99); LIPEMIA HEMOLYSIS FLAG 90 (0-99); MEAN CELL HEMOGLOBIN 31.2 pg (27.9-34.1); MEAN CELL HEMOGLOBIN CONCENTR. 33.9 g/dL (32.4-36.7); MEAN CELL VOLUME 92.1 fL (81.5-99.8); MEAN PLATELET VOLUME 10.1 fL (8.7-11.7); PLATELET CLUMPS FLAG 0 (0-99); PLATELET COUNT 237 10^3/uL (150-400); RED BLOOD CELL COUNT 5.09 10^6/uL (4.40-6.38); RED CELL DISTRIBUTION WIDTH 12.4 % (11.5-15.2)
--- NOTE | 2017-01-07 14:51 | EDPHY ---
H & P Stated Complaint: SI Time Seen by Provider: 01/07/17 14:51 - Personal History Current Tetanus Diphtheria and Acellular Pertussis (TDAP): Yes - Medical/Surgical History Hx Asthma: Yes Hx Chronic Respiratory Disease: No Hx Diabetes: No Hx Cardiac Disease: No Hx Renal Disease: No Hx Cirrhosis: No Hx Alcoholism: No Hx HIV/AIDS: No Hx Splenectomy or Spleen Trauma: No Other PMH: PMHx: asthma, anxiety, depression, history of suicide attempt. PSHx : R arm - Social History Smoking Status: Heavy smoker Constitutional: Initial Vital Signs Temperature (C) 36.9 C 01/07/17 14:20 Heart Rate 69 01/07/17 14:20 Respiratory Rate 16 01/07/17 14:20 Blood Pressure 116/76 01/07/17 14:20 O2 Sat (%) 98 01/07/17 14:20 O2 Delivery Mode Room Air Allergies/Adverse Reactions: No Known Allergies Allergy (Unverified 01/07/17 14:25) Medical Decision Making ED Course/Re-evaluation: CHIEF COMPLAINT: Psychiatric evaluation HISTORY OF PRESENT ILLNESS: 21-year-old gentleman who has had psychiatric issues for several years. He suffers from severe anxiety according to him but he also has suicidal thoughts and tendencies. He has never attempted to commit suicide. He has no specific plan today. He is here because he is having some thoughts however he really is having difficulty with his severe anxiety. He has been hospitalized before. REVIEW OF SYSTEMS: A 10 point review of systems was performed and is negative with the exception of the elements mentioned in the history of present illness. PHYSICAL EXAM: General Appearance: Alert, well hydrated, appropriate, and non-toxic appearing. Head: Atraumatic without scalp tenderness or obvious injury Eyes: Pupils equal, round, reactive to light and accommodation, EOMI, no trauma , no injection. Ears: Clear bilaterally, no perforation, normal landmarks Nose: Atraumatic, no rhinorrhea, clear. Throat: There is no erythema or exudates, no lesions, normal tonsils, mucus membranes moist. Neck: Supple, 2+ carotid upstroke, nontender, no lymphadenopathy. Respiratory: No retractions, no distress, no wheezes, and no accessory muscle use. Lungs are clear to auscultation bilaterally. Cardiovascular: Regular rate and rhythm, no murmurs, rubs, or gallops. Bilateral carotid, radial, dorsalis pedis, and posterior tibial pulses intact. Good capillary refill all extremities. Gastrointestinal: Abdomen is soft, nontender, non-distended, no masses, no rebound, no guarding, no peritoneal signs. Musculoskeletal: Normal active ROM of all extremities, atraumatic. Neurological: Alert, appropriate, and interactive. The patient has normal DTRs and non-focal cranial nerves, motor, sensory, and cerebellar exam. Skin: No rashes, good turgor, no nodules on palpation. Past medical history: Anxiety suicidal ideations Past surgical history: None Family history: Noncontributory Social history: Single, smokes marijuana, denies tobacco or alcohol abuse, employed DIFFERENTIAL DIAGNOSIS: The differential diagnosis for the patient's depression included but was not limited to functional and major depression, situational depression, medication side effect, drugs, and alcohol abuse. MEDICAL DECISION MAKING: Patient is in no acute distress and is hemodynamically stable. We are awaiting psychiatric team's evaluation. Patient has known history of psychiatric disorders and is here for evaluation. - Data Points Laboratory Results: Laboratory Results 01/07/17 14:40 01/07/17 01/07/17 01/07/17 14:40 14:40 14:30 WBC 5.19 10^3/uL 10^3/uL (3.80-9.50) RBC 5.09 10^6/uL 10^6/uL (4.40-6.38) Hgb 15.9 g/dL g/dL (13.7-17.5) Hct 46.9 % % (40.0-51.0) MCV 92.1 fL fL (81.5-99.8) MCH 31.2 pg pg (27.9-34.1) MCHC 33.9 g/dL g/dL (32.4-36.7) RDW 12.4 % % (11.5-15.2) Plt Count 237 10^3/uL 10^3/uL (150-400) MPV 10.1 fL fL (8.7-11.7) Neut % (Auto) 62.6 % % (39.3-74.2) Lymph % (Auto) 24.5 % % (15.0-45.0) [place] % (Auto) 10.2 % % (4.5-13.0) Eos % (Auto) 1.7 % % (0.6-7.6) Baso % (Auto) 0.6 % % (0.3-1.7) Nucleat RBC Rel Count 0.0 % % (0.0-0.2) Absolute Neuts (auto) 3.25 10^3/uL 10^3/uL (1.70-6.50) Absolute Lymphs (auto) 1.27 10^3/uL 10^3/uL (1.00-3.00) Absolute Monos (auto) 0.53 10^3/uL 10^3/uL (0.30-0.80) Absolute Eos (auto) 0.09 10^3/uL 10^3/uL (0.03-0.40) Absolute Basos (auto) 0.03 10^3/uL 10^3/uL (0.02-0.10) Absolute Nucleated RBC 0.00 10^3/uL 10^3/uL (0-0.01) Immature Gran % 0.4 % % (0.0-1.1) Immature Gran # 0.02 10^3/uL 10^3/uL (0.00-0.10) Sodium Pending Potassium Pending Chloride Pending Carbon Dioxide Pending Anion Gap Pending BUN Pending Creatinine Pending Estimated GFR Pending Glucose Pending Calcium Pending Urine Opiates Screen NEGATIVE (NEGATIVE) Urine Barbiturates NEGATIVE (NEGATIVE) Ur Phencyclidine Scrn NEGATIVE (NEGATIVE) Ur Amphetamine Screen NEGATIVE (NEGATIVE) U Benzodiazepines Scrn NEGATIVE (NEGATIVE) Urine Cocaine Screen NEGATIVE (NEGATIVE) U Marijuana (THC) Screen NON-NEGATIVE H (NEGATIVE) Ethyl Alcohol Pending Departure - Departure Clinical Impression: Suicidal ideation Referrals: Patient,NotPresent [Primary Care Provider] - As per Instructions
[2017-01-07 15:10] LABS: ANION GAP 15 mEq/L (8-16); CALCIUM 9.8 mg/dL (8.5-10.4); CARBON DIOXIDE 23 mEq/l (22-31); CHLORIDE 105 mEq/L (97-110); CREATININE 0.8 mg/dL (0.7-1.3); ETHANOL SERUM < 10 mg/dL (0-10); GLOMERULAR FILTRATION RATE > 60; GLUCOSE 90 mg/dL (70-100); POTASSIUM 4.4 mEq/L (3.5-5.2); SODIUM 143 mEq/L (134-144)
[2017-01-07 19:32] VITALS: BP 114/71; O2SAT 95
[2017-01-07 22:07] VITALS: PULSE 85; RESP 14
== END 2017-01-07 22:05 ==
LOC: EDUNIT#
DX: R45.851 Suicidal ideations (principal); J45.909 Unspecified asthma, uncomplicated; F17.200 Nicotine dependence, unspecified, uncomplicated
CPT/HCPCS: 80305; G0480

== ENCOUNTER 2017-02-08 00:13 | Emergency (ER) | payer MEDICAID ==
--- NOTE | 2017-02-08 00:23 | EDPHY ---
H & P HPI/ROS: CHIEF COMPLAINT: Depression, suicidal ideation, M1 hold HISTORY OF PRESENT ILLNESS: This patient very pleasant 21-year-old male, significant past medical history for depression and schizophrenia who presents emergency room by EMS on M1 hold. He went into the walk-in center and stated that he was suicidal. No specific plan. He does tell me feels more depressed. He is off his medications. They placed him on M1 hold and brought him here to the emergency room. He is, cooperative. Past Medical History: Schizophrenia, depression Past Surgical History: No recent surgery Social History: Denies daily use of alcohol, does smoke tobacco and marijuana. Family History: Noncontributory ROS REVIEW OF SYSTEMS: A comprehensive 10 point review of systems is otherwise negative aside from elements mentioned in the history of present illness. Exam Constitutional triage nursing summary reviewed, vital signs reviewed, awake/ alert. Eyes normal conjunctivae and sclera, EOMI, PERRLA. HENT normal inspection, atraumatic, moist mucus membranes, no epistaxis, neck supple/ no meningismus, no raccoon eyes. Respiratory clear to auscultation bilaterally, normal breath sounds, no respiratory distress, no wheezing. Cardiovascular rate normal, regular rhythm, no murmur, no edema, distal pulses normal. Gastrointestinal soft, non-tender, no rebound, no guarding, normal bowel sounds, no distension, no pulsatile mass. Genitourinary no CVA tenderness. Musculoskeletal no midline vertebral tenderness, full range of motion, no calf swelling, no tenderness of extremities, no meningismus, good pulses, neurovascularly intact. Skin pink, warm, & dry, no rash, skin atraumatic. Neurologic awake, alert and oriented x 3, AAOx3, moves all 4 extremities equally, motor intact, sensory intact, CN II-XII intact, normal cerebellar, normal vision, normal speech. Psychiatric depressed, flat affect Heme/Lymph/Immune no lymphadenopathy. Differential Diagnosis: Includes but is not limited to in a particular order, suicidal ideation, severe depression, schizophrenia Medical Decision Making: Plan for this patient IV establishment for blood draw for medical clearance. Check blood work for medical clearance. Patient on M1 hold. Will need placement. Re-evaluation: [id number]: This patient has been accepted at [facility]. By Dr. Malni. EMTALA FIlled out. Appropriate transfer will be set up Source: Patient, EMS - Medical/Surgical History Hx Asthma: Yes Hx Chronic Respiratory Disease: No Hx Diabetes: No Hx Cardiac Disease: No Hx Renal Disease: No Hx Cirrhosis: No Hx Alcoholism: No Hx HIV/AIDS: No Hx Splenectomy or Spleen Trauma: No Other PMH: PMHx: asthma, anxiety, depression, history of suicide attempt. PSHx : R arm - Social History Smoking Status: Heavy smoker Constitutional: Initial Vital Signs Temperature (C) 36.6 C 02/08/17 00:30 Heart Rate 69 02/08/17 00:30 Respiratory Rate 20 02/08/17 00:30 Blood Pressure 117/79 02/08/17 00:30 O2 Sat (%) 98 02/08/17 00:30 O2 Delivery Mode Room Air Allergies/Adverse Reactions: No Known Allergies Allergy (Unverified 01/07/17 14:25) Home Medications: Medication Instructions Recorded NK [No Known Home Meds] 02/08/17 Medical Decision Making - Data Points Laboratory Results: Laboratory Results 02/08/17 00:30 02/08/17 00:30 02/08/17 02/08/17 02/08/17 03:00 00:30 00:30 WBC 7.71 10^3/uL 10^3/uL (3.80-9.50) RBC 4.90 10^6/uL 10^6/uL (4.40-6.38) Hgb 15.5 g/dL g/dL (13.7-17.5) Hct 45.3 % % (40.0-51.0) MCV 92.4 fL fL (81.5-99.8) MCH 31.6 pg pg (27.9-34.1) MCHC 34.2 g/dL g/dL (32.4-36.7) RDW 12.7 % % (11.5-15.2) Plt Count 293 10^3/uL 10^3/uL (150-400) MPV 9.9 fL fL (8.7-11.7) Neut % (Auto) 60.6 % % (39.3-74.2) Lymph % (Auto) 24.9 % % (15.0-45.0) [place] % (Auto) 10.4 % % (4.5-13.0) Eos % (Auto) 2.6 % % (0.6-7.6) Baso % (Auto) 1.2 % % (0.3-1.7) Nucleat RBC Rel Count 0.0 % % (0.0-0.2) Absolute Neuts (auto) 4.68 10^3/uL 10^3/uL (1.70-6.50) Absolute Lymphs (auto) 1.92 10^3/uL 10^3/uL (1.00-3.00) Absolute Monos (auto) 0.80 10^3/uL 10^3/uL (0.30-0.80) Absolute Eos (auto) 0.20 10^3/uL 10^3/uL (0.03-0.40) Absolute Basos (auto) 0.09 10^3/uL 10^3/uL (0.02-0.10) Absolute Nucleated RBC 0.00 10^3/uL 10^3/uL (0-0.01) Immature Gran % 0.3 % % (0.0-1.1) Immature Gran # 0.02 10^3/uL 10^3/uL (0.00-0.10) Sodium 141 mEq/L mEq/L (134-144) Potassium 4.0 mEq/L mEq/L (3.5-5.2) Chloride 100 mEq/L mEq/L (97-110) Carbon Dioxide 25 mEq/l mEq/l (22-31) Anion Gap 16 mEq/L mEq/L (8-16) BUN 13 mg/dL mg/dL (7-23) Creatinine 0.9 mg/dL mg/dL (0.7-1.3) Estimated GFR > 60 Glucose 89 mg/dL mg/dL (70-100) Calcium 9.8 mg/dL mg/dL (8.5-10.4) Urine Opiates Screen NEGATIVE (NEGATIVE) Urine Barbiturates NEGATIVE (NEGATIVE) Ur Phencyclidine Scrn NEGATIVE (NEGATIVE) Ur Amphetamine Screen NEGATIVE (NEGATIVE) U Benzodiazepines Scrn NEGATIVE (NEGATIVE) Urine Cocaine Screen NEGATIVE (NEGATIVE) U Marijuana (THC) Screen NON-NEGATIVE H (NEGATIVE) Ethyl Alcohol < 10 mg/dL mg/dL (0-10) Departure - Departure Disposition: Acute Care Hospital Not [facility] Clinical Impression: Depression Qualifiers: Depression Type: major depressive disorder Major depression recurrence: single episode Active/Remission status: currently active Major depression episode severity: severe Psychotic features: without psychotic features Qualified Code(s ): F32.2 - Major depressive disorder, single episode, severe without psychotic features Condition: Good Referrals: Patient,NotPresent [Primary Care Provider] - As per Instructions
[2017-02-08 00:36] VITALS: TEMP 97.9
[2017-02-08 00:56] LABS: % IMMATURE GRANULYOCYTES 0.3 % (0.0-1.1); ABSOLUTE IMMATURE GRANULOCYTES 0.02 10^3/uL (0.00-0.10); ADD DIFF? NO; ADD MORPH? NO; ADD SCAN? NO; ATYPICAL LYMPHOCYTE FLAG 0 (0-99); FRAGMENT RBC FLAG 0 (0-99); HEMATOCRIT 45.3 % (40.0-51.0); HEMOGLOBIN 15.5 g/dL (13.7-17.5); LEFT SHIFT FLG 0 (0-99); LIPEMIA HEMOLYSIS FLAG 90 (0-99); MEAN CELL HEMOGLOBIN 31.6 pg (27.9-34.1); MEAN CELL HEMOGLOBIN CONCENTR. 34.2 g/dL (32.4-36.7); MEAN CELL VOLUME 92.4 fL (81.5-99.8); MEAN PLATELET VOLUME 9.9 fL (8.7-11.7); PLATELET CLUMPS FLAG 10 (0-99); PLATELET COUNT 293 10^3/uL (150-400); RED CELL DISTRIBUTION WIDTH 12.7 % (11.5-15.2)
[2017-02-08 00:57] LABS: ANION GAP 16 mEq/L (8-16); CALCIUM 9.8 mg/dL (8.5-10.4); CARBON DIOXIDE 25 mEq/l (22-31); CHLORIDE 100 mEq/L (97-110); CREATININE 0.9 mg/dL (0.7-1.3); ETHANOL SERUM < 10 mg/dL (0-10); GLOMERULAR FILTRATION RATE > 60; GLUCOSE 89 mg/dL (70-100); SODIUM 141 mEq/L (134-144)
[2017-02-08] MEDS ORDERED: LORazepam 1 MG TAB PO ONE (05:15)
[2017-02-08 05:23] VITALS: BP 107/71; PULSE 80; RESP 16; O2SAT 96
== END 2017-02-08 05:35 ==
LOC: EDUNIT# → EEVIPCON 00:13
DX: F32.2 Major depressive disorder, single episode, severe without psychotic features (principal); J45.909 Unspecified asthma, uncomplicated; F17.200 Nicotine dependence, unspecified, uncomplicated
CPT/HCPCS: 80305; G0480

== ENCOUNTER 2018-02-11 15:05 | Emergency (ER) | payer MEDICAID ==
--- NOTE | 2018-02-11 15:11 | EDPHY ---
H & P Time Seen by Provider: 02/11/18 15:09 HPI/ROS: CHIEF COMPLAINT: Suicidal, combative HISTORY OF PRESENT ILLNESS: The patient is a 22-year-old man with history of depression and polysubstance abuse whose mom was taking him to the crisis Center for suicidal ideations. Once they got there the patient refused to go in. Police were called. The patient was combative with police and was hobbled. When paramedics arrived they gave him 5 mg of Versed IM and he calmed. He now denies suicidal ideations. Denies recent drug or alcohol use. No signs of injury or complaints of pain. No recent fevers or illness Severity: . Moderate Modifying factors: [employer] treatment REVIEW OF SYSTEMS: Constitutional: denies: chills, fever, recent illness, recent injury EENTM: denies: blurred vision, double vision, nose congestion Respiratory: denies: cough, shortness of breath Cardiac: denies: chest pain, irregular heart rate, lightheadedness, palpitations Gastrointestinal/Abdominal: denies: abdominal pain, diarrhea, nausea, vomiting, blood streaked stools Genitourinary: denies: dysuria, frequency, hematuria, pain Musculoskeletal: denies: joint pain, muscle pain Skin: denies: lesions, rash, jaundice, bruising Neurological: denies: headache, numbness, paresthesia, tingling, dizziness, weakness Hematologic/Lymphatic: denies: blood clots, easy bleeding, easy bruising Immunologic/allergic: denies: HIV/AIDS, transplant 10 systems reviewed and negative except as noted EXAM: GENERAL: Disheveled, moderate distress HEAD: Atraumatic, normocephalic. EYES: Pupils equal round and reactive to light, extraocular movements intact, sclera anicteric, conjunctiva are normal. ENT: TMs normal, nares patent, oropharynx clear without exudates. Moist mucous membranes. NECK: Normal range of motion, supple without lymphadenopathy or JVD. LUNGS: Breath sounds clear to auscultation bilaterally and equal. No wheezes rales or rhonchi. HEART: Regular rate and rhythm without murmurs, rubs or gallops. ABDOMEN: Soft, nontender, normoactive bowel sounds. No guarding, no rebound. No masses appreciated. BACK: No CVA tenderness, no spinal tenderness, step-offs or deformities EXTREMITIES: Normal range of motion, no pitting or edema. No clubbing or cyanosis. NEUROLOGICAL: Cranial nerves II through XII grossly intact. Normal speech, normal gait. 5/5 strength, normal movement in all extremities, normal sensation , normal reflexes PSYCH: Minimally conversant, answers most questions appropriately. Somewhat cooperative. SKIN: Warm, dry, normal turgor, no visible rashes or lesions. Source: Patient Exam Limitations: No limitations - Personal History Current Tetanus/Diphtheria Vaccine: Yes - Medical/Surgical History Hx Asthma: Yes Hx Chronic Respiratory Disease: No Hx Diabetes: No Hx Cardiac Disease: No Hx Renal Disease: No Hx Cirrhosis: No Hx Alcoholism: No Hx HIV/AIDS: No Hx Splenectomy or Spleen Trauma: No Other PMH: PMHx: asthma, anxiety, depression, polysubstance abuse, history of suicide attempt. PSHx: R arm - Family History Significant Family History: No pertinent family hx - Social History Smoking Status: Heavy smoker Alcohol Use: Occasionally Drug Use: Other Constitutional: Initial Vital Signs Temperature (C) 36.6 C 02/11/18 15:20 Heart Rate 87 02/11/18 15:20 Respiratory Rate 16 02/11/18 15:20 Blood Pressure 119/72 02/11/18 15:20 O2 Sat (%) 100 02/11/18 15:20 O2 Delivery Mode Room Air Allergies/Adverse Reactions: No Known Allergies Allergy (Unverified 01/07/17 14:25) Home Medications: Medication Instructions Recorded Antibiotics 02/11/18 Medical Decision Making ED Course/Re-evaluation: Patient was accepted by Dr. Grigsby to [facility]. Transfer paperwork completed. Differential Diagnosis: Partial list of the Differential diagnosis considered include but were not limited to; depression, anxiety, substance abuse, suicidality and although unlikely based on the history and physical exam, I also considered trauma, infection. - Data Points Laboratory Results: Laboratory Results 02/11/18 15:11 02/11/18 15:11 Departure - Departure Disposition: Other Psych, Not [facility] Clinical Impression: Depression Qualifiers: Depression Type: unspecified Qualified Code(s): F32.9 - Major depressive disorder, single episode, unspecified Condition: Fair Referrals: Patient,NotPresent [Unknown] - As per Instructions
[2018-02-11 15:27] LABS: PLATELET COUNT 231 10^3/uL (150-400)
--- NOTE | 2018-02-11 21:05 | ASMTTLCEVL ---
[facility] Evaluation - Basic Information Evaluation Start Date and 02/11/2018 07:00 PM Time Hospital Status Answers: M1 Hold 72-hr M1 Hold Start Date 02/11/2018 03:10 PM and Time Narrative Notes: Pt is a 22 yo white male single never with no children, currently living with his mother in [place], and unemployed. Pt was brought to [facility] ed on a M1 by [employer] that noted The respondent made suicidal statements to his mother. The respondent told his mother he was going to blow his brains out. The respondent walked away from his mothers vehicle as she attempted to drop him off at the crisis center. The respondent told me that if he had a gun, he would kill himself. The respondent is bipolar and had a history of mental illness. Pt appeared agitated and uncooperative and stated, Youre on camera, just walk in and walk out of this room. Your gonna do what your gonna do anyway. Pt stated the police smashed his face down in the ground, earlier today. Pt reports he is not suicidal but Has demons in my fuckin head. Pt stated he never told the police he was suicidal or had a plan to kill himself. Pt stated he asked his mother for $10 to buy some marijuana for his ear ache, his mother said no to giving him money and she attempted to take him to the [facility]. Pt became very upset when this publicity writer asked pt more details about why he was going to the [facility] and told this publicity writer, Youre only good for your pussy and some guys miles. This publicity writer was unable to complete the evaluation with pt and obtained collateral from moc, P and previous [facility] records. Per MOC, pt has been struggling for the past 1.5 years and has been on several M1 holds in the last few months. MOC stated in the last few months, pt has started using meth and his behavior has since become more erratic. She stated pt lives with him but 2 weeks ago he walked out and she had not heard from him until this past Sat. She stated he called her because he had an ear infection. She stated pt had been homeless in [place] for the past 2 weeks. She took him to the urgent care for tx for his ear infection. Mo stated she takes pts suicidal statements seriously and stated, I believed Im when he says hes gonna blow his brains out. MOC stated, pt told her , Every day when I was on the street, I wished I had a gun so I can blow my brains out. [facility] states pt often says he wishes he wouldnt wake up. MOC stated in the past he has exhibited signs of psychosis (nonsensical speech, talking to himself/yelling to himself) but stated she is not sure if it is his mental lllness or substance use causing these symptoms. MO stated she believes pt is depressed and suicidal. Diagnosis History Notes: Pt has a hx of Bipolar disorder, MDD, cannabis use disorder chronic severe, amphetamine use disorder, chronic severe. Prior suicide attempts Notes: No prior suicide attempts reported, however per previous [facility] records pt has OD on Benadryl in the past. It is unclear if this was an OD. When pt was 16, he overdosed on risperdone and his throat closed up and was taken to the ED. Prior hospitalizations Notes: Pt was in [facility] for 5 weeks last year Pt has also been to [facility], [facility] and from 12/16/16-12/26/16. Treatment Responses Notes: Per MO, pt has not been compliant with taking most of his prescribed meds. History of violence Notes: Per mo, pt has never been violent with her but in the past few months he has been punching sosa and hitting things, which mo says, is unlike pt. Psychiatrist: Dr. Silver- Pt missed his appt on 01/28/18. Medications (name, dosage, route, freq uency) Notes: Pt is on Abilify Mantenna 300MG IM with his last shit on 11/22/17. In the past, pt has been on Ativan, Zyprexa, trazadone, propranolol, risperdone. Zoloft. Per mo, pt has not taken Zyprexa, Zoloft or propranolol but did take the trazadone. Allergies/Reaction Notes: Nka Sleep Notes: Unable to assess. Per MO, when she picked pt up on Sunday, pt has slept, a lot since he got off the streets. He has been sleeping lot which is very typical when he comes off the meth. Appetite Notes: Unable to assess. Medical/Surgical history Notes: Pts mother denied that the pt had any medical issues other than seasonal allergies. Substance use history (frequency, intensity, his tory, duration) Notes: Pt has a hx of THC use and for the last few months, pt has been using methamphetamine. [facility] is not sure when the last time he used was or how often he uses Utox pos for THC. Family composition Notes: Pt has an older sister who also lives with [facility]. Need for family Answers: No participation in patient's care Family psychiatric/substance abuse history Notes: No hx of family mental illness reported. Developmental history Notes: Pts mother reports that the pt had a concussion at the age of [age] years old but was never diagnosed with a TBI. Pt denied any abuse: emotional, physical or sexual (pt shaking his head no). Abuse concerns Answers: None Marital status/children Notes: Pt is unmarried, no children. Living situation Notes: Pt lives with [facility] in [place] but has been homeless for 2 weeks. Sexual history/orientation Notes: Pt is heterosexual. Peer support/family strengths Notes: Pts support are only his mother and sister. Pt did not respond when asked about friends. Education level/history Notes: When pt was asked what his highest level of education was he said: you got me.high school. Work history Notes: Pts mother reports the pt has not worked since August of 2016. Pts said I can never work againI cant look people in the eye. Notes: None reported. Legal Notes: Pt denied any legal issues. Pts mother reports pt has a legal hx: he spent 9 months in detention for theft in 2010, but has no assault charges to her knowledge. Confucianist/Spiritual Notes: Unable to assess. Leisure Notes: Unable to assess. Collateral Notes: Mother-Keeley MELIZA Previous [facility] records. Patient's strengths Answers: Intelligent (Please select at least TWO strengths): Supportive Family [facility] Evaluation - Mental Status Exam Appearance: Answers: Disheveled Eye Contact: Answers: Staring Mood: Answers: Irritable Affect: Answers: Agitated Angry Suspicious Behavior: Answers: Uncooperative Belligerent Resistive to Care Speech: Answers: Irrelevant Verbally Abusive Insight: Answers: Poor Judgement: Answers: Poor Pt reported to have Answers: No suicidal/self-injuring ideation/behavior? Pt reported to be making Answers: Yes suicidal/self-injuring threats? Pt reported to have Answers: No aggression/assault ideation/behavior? Pt reported to be making Answers: No aggression/assault threats? Pt exhibits inability to Answers: No care for self/grave disability? Ideation/behavior is Answers: Yes chronic? Patient has a specific Answers: No plan? [facility] Evaluation - Suicide/Homicide Risk Suicide Risk Factors: Answers: < 20 or > 40 Years of Age Agitation Alcohol/Heavy Drug Use Bipolar Disorder Lack/Loss of Employment Major Depression Unstable Living Situation [facility] Evaluation - Wrap-up AXIS I Diagnosis (include DSM-V and ICD-10 codes), must also be entered in [employer], which is the source of truth. Notes: Bipolar I Disorder, severe 296.43 (F31.13) Major Depressive Disorder, recurrent, severe 296.33 (F33.2) Cannabis Use Disorder, severe 304.30 (F12.20) Amphetamine-Type Substance Use Disorder, severe 304.40 (F15.20) Evaluation End Date and 02/11/2018 09:00 PM Time (HH:MM): Date Signed: 02/11/2018 09:04 PM Electronically Signed By:Elana Lemus
--- NOTE | 2018-02-11 22:44 | ASMTTCLDSP ---
[facility] Discharge Disposition Disposition: Answers: Discharge Discharge Concerns/Recommendations: Notes: In consultation with [facility] ED physician,Korey Burnett MD and on-call psychiatrist, Stone Donald MD, both concurred that pt appears to meet 27-65 criteria requiring psychiatric hospitalization as pt appears to be at risk of harm to self due to a mental illness condition. Type of Hold: Answers: M1/72-hour Hold For Transfers, Accepting [facility] Facility: For Transfers, Accepting Dr. Perez Psychiatrist: For Transfers, Reason Dual Dx Patient is Being Transferred: Date Signed: 02/11/2018 10:43 PM Electronically Signed By:Elana Lemus
[2018-02-11 23:08] VITALS: BP 109/65
== END 2018-02-11 23:42 ==
LOC: EDUNIT#
DX: F32.9 Major depressive disorder, single episode, unspecified (principal); R45.851 Suicidal ideations; F41.9 Anxiety disorder, unspecified; J45.909 Unspecified asthma, uncomplicated; F17.200 Nicotine dependence, unspecified, uncomplicated; Z91.5 Personal history of self-harm
CPT/HCPCS: 80305; G0480